=== PATIENT | male | born 1955 | race Two or more races ===

== ENCOUNTER 2016-04-28 00:10 | Inpatient (IN) | payer OTHER ==
[2016-04-24 11:28] VITALS: BP 163/111
[2016-04-24 11:40] VITALS: BP 151/95
[2016-04-24 12:33] LABS: BASOPHIL % 0.4 % (0.0-0.2); EOSINOPHIL # 0.1 10^3/uL (0.0-0.2); EOSINOPHIL % 0.7 % (0.0-5.0); HEMATOCRIT 40.8 % (37.0-53.0); HEMOGLOBIN 13.9 g/dL (13.9-16.3); LYMPHOCYTES # 2.5 10^3/uL (1.0-4.8); MEAN CELL HGB 31.3 pg (26-34); MEAN CELL HGB CONCENTRATION 34.1 g/dL (33-37); MEAN CORP VOLUME 91.9 fL (78-100); MEAN PLATELET VOLUME 9.8 fL (7.8-11.0); MONOCYTES # 0.7 10^3/uL (0.3-0.8); MONOCYTES % 7.1 % (5.0-12.0); NEUTROPHIL # 6.7 10^3/uL (1.8-7.7); NEUTROPHILS % 66.4 % (41.0-85.0); RED BLOOD CELL 4.44 10^6/uL (4.50-5.90); RED CELL DISTRIBUTION WIDTH 13.1 % (11.5-14.5); WHITE BLOOD CELL 10.1 10^3/uL (4.5-11.0)
[2016-04-24 12:58] LABS: ALANINE AMINOTRANSFERASE 28 U/L (12-78); ALBUMIN 4.1 g/dL (3.4-5.0); ALKALINE PHOSPHATASE 137 U/L (50-136); ANION GAP 15.9; ASPARTATE AMINO TRANSFERASE 14 U/L (0-35); CALCIUM 8.5 mg/dL (8.4-10.5); CARBON DIOXIDE 23.8 mmol/L (20.0-32); CREATININE SERUM 1.12 mg/dL (0.59-1.40); GLUCOSE 218 mg/dL (70-110)
[2016-04-24 13:00] LABS: INR 0.9; PARTIAL THROMBOPLASTIN TIME 21.5 SEC (24.67-30.72); PROTHROMBIN PROTIME 9.9 SEC (8.6-11.8)
[~2016-04-28] VITALS: Ht 167.6 cm; Wt 85.7 kg
[~2016-04-28 00:10] MED LIST: ALBU6.7H IH; ATOR40TA PO; CETI10TA24 PO; DILT60TA3 PO; FENO135C PO; FOLI1TAB21 PO; GLAT20KI SQ; HYDR200T5 PO; HYDR25CA93 PO; LOSA50TA6 PO; METF500T PO; METH2.5T PO; METO10TA83 PO; METO50TA2 PO; MOME13HF2 IH; OLOP2.5D OP; PANT40TA3 PO; ZOLP5TAB PO
[2016-04-28] MEDS ORDERED: NS 1000ML 1,000 ML ONE ×2 (04:52→19:40)
[2016-04-28] MEDS ORDERED: LEVAQUIN 100 ML IV ONE (04:52)
[2016-04-28] MEDS ORDERED: LEVAQUIN IV ONE (06:00)
[2016-04-28 06:35] VITALS: BP 152/103
[2016-04-28] MEDS ORDERED: DECADRON ONE (06:44)
[2016-04-28] MEDS ORDERED: XYLOCAINE ONE (06:45)
[2016-04-28] MEDS ORDERED: ZOFRAN ONE (06:45)
[2016-04-28] MEDS ORDERED: DIPRIVAN IV ONE ×2 (06:46→10:47)
[2016-04-28] MEDS ORDERED: QUELICIN ONE (06:46)
[2016-04-28] MEDS ORDERED: SUBLIMAZE ONE (06:47)
[2016-04-28] MEDS: NS 1000ML 1,000 ML IV SCH ×3 (06:54→19:40)
[2016-04-28] MEDS ORDERED: LOPRESSER ONE ×2 (06:57→13:36)
[2016-04-28] MEDS ORDERED: LOPRESSOR PO STA ×2 (07:00→08:51)
[2016-04-28] MEDS ORDERED: SODIUM CHLORIDE IR ONE ×3 (07:15→07:21)
[2016-04-28] MEDS ORDERED: AMINOACETIC ACID IR ONE (07:21)
[2016-04-28] MEDS ORDERED: VERSED ONE (07:32)
[2016-04-28] MEDS ORDERED: NS 1000ML 1,000 ML IV SCH (08:46)
[2016-04-28 08:55] VITALS: BP 125/81
[2016-04-28 09:00] VITALS: BP 123/79
[2016-04-28] MEDS ORDERED: PHENERGAN IV PRN ×2 (09:00)
[2016-04-28] MEDS ORDERED: AMBIEN PO PRN (09:00)
[2016-04-28] MEDS: FOLIC ACID PO SCH ×2 (09:00→13:44)
[2016-04-28] MEDS: LEVAQUIN IV SCH (09:00)
[2016-04-28] MEDS ORDERED: DEMEROL IV PRN ×2 (09:00)
[2016-04-28] MEDS: LOPRESSOR PO SCH ×2 (09:00→20:11)
[2016-04-28] MEDS ORDERED: LEVAQUIN IV SCH (09:00)
[2016-04-28] MEDS: COZAAR PO SCH ×2 (09:00→13:43)
[2016-04-28] MEDS ORDERED: METHOTREXATE PO SCH (09:00)
[2016-04-28] MEDS ORDERED: NORCO 7.5MG PO PRN ×2 (09:00)
[2016-04-28 09:05] VITALS: BP 120/74
[2016-04-28 09:10] VITALS: BP 124/82
--- NOTE | 2016-04-28 09:30 | NUR ---
ARRIVAL TO UNIT PT ARRIVED TO UNIT VIA BED. IRRIGATION RUNNING THROUGH 3 WAY CATHETER. GILLETTE SECURED TO RIGHT LEG. LIGHT YELLOW URINE NOTED AT THIS TIME. DENIES PAIN. SPECIAL VITALS INITIATED. EDUCATED ON PURPOSE OF 3 WAY CATHETER. PT VERBALIZED UNDERSTANDING. ORIENTED TO ROOM AND TO UNIT. INSTRUCTED ON USE OF CALL LIGHT. PT VERBALIZED UNDERSTANDING. WILL CONTINUE TO MONITOR.
--- NOTE | 2016-04-28 11:29 | OPH ---
DATE OF SURGERY: 04/28/2016 PREOPERATIVE DIAGNOSIS: Obstructive prostatic hyperplasia. FINAL DIAGNOSIS: Obstructive prostatic hyperplasia. PROCEDURES: TUR of the prostate. DESCRIPTION OF PROCEDURE: The patient was brought to the cystoscopy room in supine position, and after giving a low spinal anesthesia and subsequent LMA general anesthesia, the patient was placed in the lithotomy position. The genitalia was then prepped and draped aseptically in the usual manner. First, the urethra was dilated with ____ up to 26 Angolan and then a 26-Angolan resectoscope sheath was inserted per urethra up to the bladder. With the use of the ____ with 30-degree angle lens, the posterior urethra was visualized. Verumontanum was identified. There was marked obstructive prostatic hyperplasia. The TUR report of the prostate was started at the bladder neck between 5 and 7, was carried proximal to the verumontanum. The lateral lobes were ____ next followed by the roof. After adequate resection of the prostatic hyperplasia and after adequate hemostasis, all tissues tips were then evacuated from the bladder. The bladder was then irrigated. Return flow was clear. The procedure was terminated. The patient was then awakened, was transferred to the recovery room in stable condition. En Messina MD DR: DAVIDE/fe JOB# [id number]
[2016-04-28] MEDS: CARDIZEM PO SCH ×3 (13:42→20:12)
[2016-04-28] MEDS: GLUCOPHAGE PO SCH (13:43)
[2016-04-28] MEDS: REGLAN PO SCH ×4 (13:43→20:11)
[2016-04-28] MEDS: PROTONIX PO SCH (13:44)
--- NOTE | 2016-04-28 17:34 | NUR ---
PT CBI RUNNING. OUTPUT RECORDED ON I AND O SHEET. Addendum: 04/28/16 at 1735 by IRENE Islas RN Amended: Links added.
--- NOTE | 2016-04-28 18:35 | NUR ---
RECEIVED REPORT FROM 0630 SHIFT
--- NOTE | 2016-04-28 18:35 | NUR ---
REPORT REPORT GIVEN TO KAPIL GONZALEZ. RELINQUISHED CARE OF PT.
[2016-04-28 19:00] VITALS: BP 118/76
[2016-04-28] MEDS: CLARITIN PO SCH (20:11)
[2016-04-28] MEDS: LIPITOR PO SCH (20:11)
[2016-04-29] MEDS ORDERED: NS 1000ML 1,000 ML ONE (03:23)
[2016-04-29] MEDS: NS 1000ML 1,000 ML IV SCH ×3 (03:25→21:32)
[2016-04-29 05:39] LABS: ANION GAP 9.8; CARBON DIOXIDE 26.2 mmol/L (20.0-32)
[2016-04-29 05:45] LABS: HEMATOCRIT 37.2 % (37.0-53.0); HEMOGLOBIN 12.5 g/dL (13.9-16.3); MEAN CELL HGB 31.5 pg (26-34); MEAN CELL HGB CONCENTRATION 33.6 g/dL (33-37); MEAN CORP VOLUME 93.7 fL (78-100); MEAN PLATELET VOLUME 9.8 fL (7.8-11.0); RED BLOOD CELL 3.97 10^6/uL (4.50-5.90); RED CELL DISTRIBUTION WIDTH 12.8 % (11.5-14.5); WHITE BLOOD CELL 15.3 10^3/uL (4.5-11.0)
[2016-04-29] MEDS ORDERED: LEVAQUIN IV ONE (06:00)
--- NOTE | 2016-04-29 06:15 | PRM.ACF1 ---
Admission Criteria Forms AMBULATORY SURGERY EXCEPTION CRITERIA Ambulatory Surgery Exception Criteria ( Place 'X' for any and all applicable criteria): Surgery or procedure performed on ambulatory basis may require inpatient stay for[A] ANY ONE of the following(1)(2)(3)(4)(5)(6)(7)(8)(9): [X] I. A preoperative situation, condition, or finding that warrants inpatient stay as indicated by ANY ONE of the following: [] a) Inpatient care needed because of severity of a disease or condition rather than the surgery (eg, severe cardiac or respiratory disease, severe infection) (15) (16 ) (17) (18) [] b) Emergent procedure (eg, angioplasty for acute ischemia)(19) [] c) Complex surgical approach or situation as indicated by ANY ONE of the following(3): [] i) Open approach needed instead of usual endoscopic, transcatheter, or other less invasive procedure [] ii) Difficult approach because of previous operation [] iii) Airway monitoring required after open neck procedures(20)(21 ) [] iv) Large mass requiring unusually extensive dissection [] v) Additional complicating feature requiring inpatient care (eg , drain management)(22(23): [X] d) Major surgery in a pt with high anesthetic risk as indicated by ANY ONE of the following (2)(3)(5)(7)(8): [X] i) ASA risk class III or higher (severe systemic disease impairing function) [D] [] ii) Advanced age (eg, older than 85 years)(14)(24) [] iii) Symptomatic heart failure(25) [] iv) Symptomatic asthma or COPD(8)(21) [] v) Morbid obesity with hemodynamic or respiratory problems(20)( 21)(26)(27) [] vi) Obstructive sleep apnea(20)(21) [] vii) Former premature infants who are younger than 60 weeks [] viii) High risk for severe postoperative abnormalities (eg, severe postoperative hypocalcemia after parathyroidectomy for severe hyperparathyroidism)(27)( 28) [] ix) Unstable angina(25) [] e) Drug-related risk requiring inpatient stay as indicated by ANY ONE of the following(5)(10)(14)(32)(33) [] i) Procedure requires discontinuing drugs or other therapy (eg , antiarrhythmic medication, antiseizure medication), which necessitates inpatient observation or treatment.(18)(31) [] ii) Major surgery and high risk drug use as indicated by ANY ONE of the following: [] 1) Active abuse of cocaine or similar drug [] 2) Monoamine oxidase inhibitor use [] 3) Other drug identified as posing risk [] f) Inadequate outpatient care situation as indicated by ANY ONE of the following(5)(10)(14)(32)(33) [] i) Patient lives remote from medical facility and procedure has urgent complication potential, and temporary nearby residence cannot be arranged [] ii) Patient will have postprocedure incapacitation and inadequate assistance at home, or alternative level of care cannot be arranged. [] iii) Patient will have long general anesthesia or procedure side effect resolution time, and competent person to stay with patient on first postoperative night at home or alternative level of care cannot be arranged. [] iv) Other inadequate outpatient situation that cannot be handled by other means [] II. A perioperative event, condition, or finding that warrants inpatient stay as indicated by ANY ONE of the following (1)(2)(3): [] a) Inadequate physiologic recovery: cardiovascular, respiratory, or hemodynamic status not normal or near preoperative baseline(18) [] b) Hemodynamic instability [] c) Patient not alert with near normal or baseline mental status [] d) Temperature not normal or as expected and not appropriate for outpatient treatment of condition [] e) Ambulatory or appropriate activity level status not yet achieved post procedure [E](34)(35)(36) [] f) Operative site not appropriate (eg, unexpected or excessive drainage or bleeding) [] g) Postoperative effects not resolved or adequately managed (eg, significant pain or vomiting not appropriate for outpatient or next level of care)(10)(12) [] h) Complicating features requiring inpatient care as indicated by ANY ONE of the following(37): [] i) Severe complications of procedure (eg, bowel injury, airway compromise, vascular injury,severe hemorrhage) [] ii) Extensive (eg, dissection far beyond usual scope of procedure ) or prolonged (eg, 120 minutes beyond usual) surgery needed requiring inpatient postoperative care [] iii) Conversion to an open or complex procedure that requires inpatient care (eg, open vs laparoscopic cholecystectomy, abdominal vs vaginal hysterectomy)(38) [] iv) Comorbid condition or test result identified during or post procedure that requires inpatient care (7) [] v) Malignant hyperthermia(30) [] vi) Other complicating feature requiring inpatient care(22)(23) Inpatient stay may be needed until ALL of the following are present (1)(2)(3)(4) (5)(6)(10)(14)(33)(40): []a) Physiologic recovery: cardiovascular, respiratory, and hemodynamic status normal or near preoperative baseline []b) Hemodynamic stability []c) Patient alert, with near normal or baseline mental status []d) Temperature appropriate: patient afebrile or temperature appropriate for outpt treatment of condition []e) Activity level appropriate: ambulatory or appropriate activity level post procedure []f) Operative site appropriate as indicated by ALL of the following: []i) Site dry or with expected drainage []ii) Any blood noted is as expected for procedure. []g) Postoperative effects resolved or managed as indicated by ALL of the following: []i) Pain management appropriate for outpatient (or next level of) care(10) []ii) Minimal nausea and vomiting: if present, successfully treated with oral medication(12) []iii) Headache, dizziness, or drowsiness (if present) are mild. []h) Voiding status acceptable as indicated by ANY ONE of the following: []i) Voiding spontaneously []ii) No voiding but instructions given for follow-up in 6 to 8 hours []iii) Urinary catheter in place, and instructions given for follow-up []i) Complicating features requiring inpatient care manageable at a lower level of care(37) []j) Comorbid conditions manageable at a lower level of care(37) The original [facility] [facility] content created by [employer] has been revised. The portions of the content which have been revised are identified through the use of italic text or in bold, and [employer] has neither reviewed nor approved the modified material. All other unmodified content is copyright [employer]. Please see references footnoted in the original [employer] edition 2016 Is [facility]/Mikhail's added/comple: YES ZHAO POP CCDS Apr 29, 2016 06:15
--- NOTE | 2016-04-29 06:30 | NUR ---
Report Received report and assumed care of pt
[2016-04-29 07:06] VITALS: BP 135/81
[2016-04-29] MEDS: FOLIC ACID PO SCH (09:02)
[2016-04-29] MEDS: GLUCOPHAGE PO SCH (09:03)
[2016-04-29] MEDS: COZAAR PO SCH (09:03)
[2016-04-29] MEDS: REGLAN PO SCH ×4 (09:03→20:29)
[2016-04-29] MEDS: LOPRESSOR PO SCH ×2 (09:04→20:29)
[2016-04-29] MEDS: PROTONIX PO SCH (09:04)
[2016-04-29] MEDS: CARDIZEM PO SCH ×4 (09:04→20:29)
[2016-04-29] MEDS: LEVAQUIN IV SCH (09:05)
[2016-04-29] MEDS ORDERED: WATER ONE (09:07)
--- NOTE | 2016-04-29 09:10 | NUR ---
DISCHARGE PLANNING: SS VISITED WITH PT CONCERNING DISCHARGE PLANNING. PT STATED HE LIVES HOME WITH HIS AND IS VERY INDEPENDENT. PT DOES NOT USE ANY DME AND DENIES NEEDING ANY OTHER SERVICES AT THIS TIME. PT SAFETY HANDOUT ADDRESSED, NO QUESTIONS ASKED, UNDERSTANDING VERBALIZED. SS TO CONTINUE TO FOLLOW AND MONITOR DISCHARGE PLANNING NEEDS.
[2016-04-29] MEDS ORDERED: SODIUM CHLORIDE IR ONE (11:10)
--- NOTE | 2016-04-29 11:30 | NUR ---
Dr. Siddharth Messina at bedside. New orders received.
--- NOTE | 2016-04-29 11:40 | NUR ---
CBI CBI discontinued. Clear pale yellow urine noted. Carol care provided. Will continue to monitor pt.
[2016-04-29 13:06] VITALS: BP 132/91
[2016-04-29 15:45] VITALS: BP 124/78
--- NOTE | 2016-04-29 18:30 | NUR ---
received report from 0630 shift
[2016-04-29 19:00] VITALS: BP 132/84
--- NOTE | 2016-04-29 19:35 | NUR ---
norco 7.5/325 x1 given for pain
[2016-04-29] MEDS: LIPITOR PO SCH (20:28)
[2016-04-29] MEDS: CLARITIN PO SCH (20:34)
--- NOTE | 2016-04-29 22:20 | NUR ---
printed information given to pt about hydrocodones, no adverse reaction observed after administration
[2016-04-30 01:04] VITALS: BP 114/72
[2016-04-30] MEDS: NS 1000ML 1,000 ML IV SCH (01:57)
[2016-04-30 05:23] VITALS: BP 135/85
[2016-04-30] MEDS: REGLAN PO SCH (08:23)
[2016-04-30] MEDS: CARDIZEM PO SCH ×2 (08:24→11:30)
[2016-04-30] MEDS: GLUCOPHAGE PO SCH (08:24)
[2016-04-30] MEDS: COZAAR PO SCH (08:24)
[2016-04-30] MEDS: FOLIC ACID PO SCH (08:24)
[2016-04-30] MEDS: PROTONIX PO SCH (08:24)
[2016-04-30] MEDS: LOPRESSOR PO SCH (08:25)
[2016-04-30] MEDS: LEVAQUIN IV SCH (09:00)
[2016-04-30 09:58] VITALS: BP 117/67
--- NOTE | 2016-04-30 10:11 | NUR ---
BLADDER IRRIGATION IRRIGATED BLADDER WITH 150 CC OF STERILE WATER. 1 SMALL BLOOD CLOT NOTED.
[2016-04-30] MEDS ORDERED: FLAV100T PO (10:14)
[2016-04-30] MEDS ORDERED: CIPR500T86 PO (10:14)
--- NOTE | 2016-04-30 10:20 | NUR ---
DR AGUILA AT BEDSIDE ORDERS TO DISCONTINUE GILLETTE GILLETTE DISCONTINUED VIA ASEPTIC TECHNIQUE Addendum: 04/30/16 at 1419 by Alannah Morfin RN - tile ditcher dr gooden
--- NOTE | 2016-04-30 11:26 | PNH ---
DATE: 04/29/2016 The patient is postoperative day #1. The patient is afebrile, urine is clear. We will discontinue the IV and change to Hep-Lock and discontinue CBI today and the patient will get out of bed. Vital signs are stable. En Messina MD DR: DAVIDE/fe JOB# [id number]
--- NOTE | 2016-04-30 11:38 | PNH ---
DATE: 04/30/2016 The patient is postop day #2, afebrile. Urine is clear. We will remove the Serrano catheter today and if he is voiding fairly well by this afternoon the patient will be discharged and be followed up in the office. En Messina MD DR: DAVIDE/fe JOB# [id number]
--- NOTE | 2016-04-30 11:45 | NUR ---
250ml of pink colored urine noted in urinal
--- NOTE | 2016-04-30 12:15 | NUR ---
discharge instructions and discharge prescriptions given patient and family deny questions and verbalize understanding by stating "i will not let my bladder get completely full before i pee so there wont be as much pressure and i will take not take any tums while on cipro"
--- NOTE | 2016-04-30 21:03 | DSH ---
DATE OF DISCHARGE: 04/30/2016 HISTORY: The patient is a 60-year-old male who was admitted to the hospital because of marked difficulty in voiding associated with slow urinary stream, urgency and nocturia. Recent cystoscopy revealed an obstructive prostatic hyperplasia and he was then admitted for definitive TUR of the prostate. LABORATORY DATA: CBC, electrolytes, BUN and creatinine within normal range. COURSE IN THE HOSPITAL: The patient underwent TUR of the prostate under spinal anesthesia. There was no operative complication noted. Postoperatively, the patient did well and on the second day postop which is today, the urine is completely clear. We will remove the Serrano catheter and he will be discharged this afternoon and he will followed up in the office. En Messina MD DR: DAVIDE/fe JOB# [id number]
== END 2016-04-30 14:00 | disposition home or self-care (01) | DRG 482 ==
LOC: MS 00:10
PROVIDERS: ADMIT Urology; ATTEND Urology
PROC: 0VB08ZZ Excision of Prostate, Via Natural or Artificial Opening Endoscopic (ICD-10-PCS; principal; 2016-04-28 07:53)
DX: N40.1 Benign prostatic hyperplasia with lower urinary tract symptoms (principal); N13.8 Other obstructive and reflux uropathy; I10 Essential (primary) hypertension; R39.15 Urgency of urination; K21.9 Gastro-esophageal reflux disease without esophagitis; E11.9 Type 2 diabetes mellitus without complications
CPT/HCPCS: 36415; 80051; 80053; 82948; 85025; 85027; 85610; 85730; 88305; 93005; J1100; J1956; J2250; J2405; J3010; J3490; J7030; J8597; J0330